=== PATIENT | male | born 1970 | race Hispanic/Latino ===

== ENCOUNTER 2018-11-18 07:58 | Emergency (ER) | payer OTHER ==
[2018-11-18 08:16] VITALS: BP 141/95
--- NOTE | 2018-11-18 08:55 | XRay Report ---
PROCEDURE: XR CHEST 1V AP TECHNIQUE: AP portable chest radiograph HISTORY: trauma, pain COMPARISONS: None FINDINGS: No mediastinal shift. Cardiac silhouette is not enlarged. No pneumothorax, effusion, or focal pulmona ry opacity identified. Mildly displaced and comminuted extra-articular right clavicular fracture. IMPRESSION: No acute pulmonary finding identified. Mildly displaced and comminuted extra-articular right clavicular fracture. No displaced rib fracture identified. This document is electronically signed by Paco Duke MD., November 18 2018 08:52:53 AM ET
--- NOTE | 2018-11-18 08:56 | XRay Report ---
PROCEDURE: XR SHOULDER 2+V RT TECHNIQUE: 3 views right shoulder HISTORY: trauma, pain COMPARISONS: None FINDINGS: The right glenohumeral joint is intact. There is a comminuted extra-articular distal right clavicular fracture with segmental fragment measuring up to 17 mm. Mild superior apex angulation. The acromiocl avicular joint is intact. There is widening of the coracoclavicular interval. No displaced rib fractu re or acute pulmonary abnormality identified. IMPRESSION: Comminuted extra-articular distal right clavicular fracture with segmental fragment measuring up to 1 7 mm. There is mild superior apex angulation and widening of the coracoclavicular interval, which paul ses concern for coracoclavicular ligamentous injury. This document is electronically signed by Paco Duke MD., November 18 2018 08:54:32 AM ET
[2018-11-18] MEDS ORDERED: PERCOCET 5/325 PO ONE (09:12)
[2018-11-18] MEDS ORDERED: MOTRIN PO ONE (09:12)
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
== END 2018-11-18 10:01 | disposition home or self-care (01) ==
LOC: ED 07:58
DX: S42.021A Displaced fracture of shaft of right clavicle, initial encounter for closed fracture (principal); R07.89 Other chest pain; V87.8XXA Person injured in other specified noncollision transport accidents involving motor vehicle (traffic), initial encounter; Y93.89 Activity, other specified; Y92.488 Other paved roadways as the place of occurrence of the external cause; Y99.8 Other external cause status
CPT/HCPCS: 71045; 93005; 93010